=== PATIENT | male | born 1960 | race Two or more races ===

== ENCOUNTER 2023-12-21 14:12 | Emergency (ER) | payer MEDICAID ==
[~2023-12-21] VITALS: Ht 190.5 cm; Wt 82.0 kg
[2023-12-21 14:24] VITALS: BP 135/92; PULSE 108; RESP 16; TEMP 97.3; O2SAT 97
== END 2023-12-21 15:12 | disposition left against medical advice (07) ==
LOC: ER 14:12
DX: R52 Pain, unspecified (principal); Z53.21 Procedure and treatment not carried out due to patient leaving prior to being seen by health care provider
CPT/HCPCS: 99281

== ENCOUNTER 2024-01-26 23:19 | Emergency (ER) | payer MEDICAID ==
[~2024-01-26] VITALS: Ht 190.5 cm; Wt 91.0 kg
[2024-01-26 23:37] VITALS: O2SAT 99
[2024-01-27] MEDS ORDERED: HYDR-4001 MT (02:09)
[2024-01-27] MEDS ORDERED: DICL75TA5 MT (02:09)
[2024-01-27] MEDS ORDERED: KETOROLAC 60MG/2ML VIAL IM ONE (02:15)
[2024-01-27] MEDS ORDERED: HYDROCODONE/ACETAMINOPHEN 10/325MG TABLET PO ONE (02:15)
[2024-01-27] MEDS: KETOROLAC 15MG/ML VIAL IM NR (02:36)
[2024-01-27] MEDS: HYDROCODONE/ACETAMINOPHEN 10/325MG TABLET PO NR (02:36)
[2024-01-27 02:42] VITALS: BP 126/82; PULSE 87; RESP 14; TEMP 98.3
[2024-01-27] MEDS ORDERED: KETOROLAC 60MG/2ML VIAL IM NR (02:45)
[2024-01-29] MEDS ORDERED: ASPI-1497 PO (09:17)
[2024-01-29] MEDS ORDERED: LISI20TA31 PO (09:17)
[2024-01-29] MEDS ORDERED: OXYC10TA48 PO (09:17)
[2024-01-29] MEDS ORDERED: SIMV-43 PO (09:17)
[2024-01-29] MEDS ORDERED: MORP30TA66 PO (09:17)
== END 2024-01-27 02:45 | disposition home or self-care (01) ==
LOC: ER 23:19
DX: M54.30 Sciatica, unspecified side (principal); M54.9 Dorsalgia, unspecified; I10 Essential (primary) hypertension; I25.2 Old myocardial infarction
CPT/HCPCS: 99283; 96372; J1885